=== PATIENT | male | born 1945 | race Caucasian/White ===

== ENCOUNTER 2017-02-05 11:08 | Emergency (ER) | payer MEDICARE, BC ==
[2017-02-05 11:30] VITALS: BP 153/65
--- NOTE | 2017-02-05 11:35 | EDM.PDOC ---
ED HPI Trauma - General Chief Complaint: Lower Extremity Injury/Pain Stated Complaint: RT FOOT Time Seen by Provider: 02/05/17 11:15 Source: Reports: Patient History Limitations: Reports: No limitations - History of Present Illness INITIAL COMMENTS - FREE TEXT/NARRATIVE: c/o R great toe pain wearing a work shoe without a metal toe 1d ago, dropped 50 lb metal on it, nail on R great toe began to bleed from the base this AM relieving the pain, not taking pain meds last TD 1y ago with finger lac has DM, has maintained feeling in toes, 2nd toe now feels numb rivera Allergies/ADRs: Allergies No Known Allergies Allergy (Verified 05/06/15 17:52) Home Medications: Ambulatory Orders Aspirin [Ecotrin] 325 mg PO DAILY 10/07/13 [Confirmed 08/24/16] Ezetimibe/Simvastatin [Vytorin 10-20 MG] 1 tab PO DAILY 10/07/13 [Confirmed 02/03] Ibuprofen [Advil] 600 mg PO TID PRN 10/07/13 [Confirmed 08/24/16] Lisinopril/Hydrochlorothiazide [Zestoretic 20-25 MG] 1 tab PO DAILY 10/07/13 [ Confirmed 08/24/16] amLODIPine [Norvasc] 5 mg PO DAILY 10/07/13 [Confirmed 08/24/16] Metoprolol Tartrate 50 mg PO BID 08/24/16 [Confirmed 08/24/16] sitaGLIPtin Phos/Metformin HCl [Janumet 50-1,000 MG] 1 each PO BID 08/24/16 [ Confirmed 08/24/16] Social & Family History - Tobacco Use Smoking Status *Q: Former Smoker Used Tobacco, but Quit: Yes Month Tobacco Last Used: august Second Hand Smoke Exposure: No - Caffeine Use Caffeine Use: Reports: Coffee - Alcohol Use Days Per Week of Alcohol Use: 7 Number of Drinks Per Day: 2 Total Drinks Per Week: 14 - Recreational Drug Use Recreational Drug Use: No Review of Systems - Review of Systems Review Of Systems: See Below Constitutional: Reports: no symptoms Eyes: Reports: no symptoms Ears: Reports: no symptoms Nose: Reports: no symptoms Mouth/Throat: Reports: no symptoms Respiratory: Reports: No Symptoms Cardiovascular: Reports: no symptoms GI/Abdominal: Reports: No symptoms Genitourinary: Reports: no symptoms Musculoskeletal: Reports: foot pain Skin: Reports: no symptoms Neurological: Reports: No Symptoms Psychiatric: Reports: no symptoms Trauma Exam - Physical Exam Exam: See Below Exam Limited By: No limitations General Appearance: Reports: alert, WD/WN, no apparent distress Head: Reports: atraumatic, normocephalic Extremities: Reports: other (R great toe with ecchymosis under lower 60%, nail intact, some separation at the base of the nail, some ecchymosis of adjacent skin over distal phalange, good ROM IP, on 2nd digit there is moderate ecchymosis of distal 1/2 with slight swell, no ecchymosis under nail, good ROM joints, minimal sensation to the skin in the distal 1/2 (likely with a component of diabetic neuropathy)) Course - Vital Signs Last Recorded V/S: Last Vital Signs Temp Pulse 59 L 02/05/17 11:13 Resp 15 02/05/17 11:13 BP 153/65 H 02/05/17 11:13 Pulse Ox 97 02/05/17 11:13 - Orders/Labs/Meds Orders: Active Orders 24 hr Category Date Time Status Toes Great Toe Rt T5 [CR] Stat Exams 02/05/17 11:28 Ordered - Re-Assessments/Exams Free Text/Narrative Re-Assessment/Exam: 02/05/17 11:58 XR shows possible slight distal tuft fx at R 2nd digit on 1 of 3 views, however no ecchymosis in same location, no Td here in ED 1 yr ago, RN checking at Dr Tafoya[facility] clinic for last Td, will give if over 10y Departure - Departure Time of Disposition: 12:00 Disposition: Home, Self-Care 01 Condition: good Clinical Impression: Subungual hematoma of great toe of right foot, Contusion, toes Instructions: Subungual Hematoma, Contusion Forms: ED Department Discharge Additional Instructions: Keep toes clean. May soak for 10 minutes in evening if necessary. While infection is unlikely, see your physician the same day for any increase in redness, swelling, pain, drainage, warmth or fever. It is best to keep the old nail attached for at least 3-4 weeks, if not longer. When the edges begin to separate, use 2 bandaids to hold it in position and to protect it. May use ibuprofen 200 mg 2 tabs and acetaminophen 325 mg 2 tabs 4 times a day as needed for pain. See your doctor if you have more symptoms or additional concerns. Call your Physician or Return to Emergency Department if: * Your condition worsens in any way. * You develop fever greater than 100.4. * You have vomiting that does not stop with medications. * You have pain that is not controlled with medications. - My Orders Last 24 Hours: My Active Orders 02/05/17 11:28 Toes Great Toe Rt T5 [CR] Stat - Assessment/Plan Last 24 Hours: My Active Orders 02/05/17 11:28 Toes Great Toe Rt T5 [CR] Stat
[2017-02-05] MEDS ORDERED: Diphtheria,Pertussis(Acell),Tetanus Vaccine 0.5 ML SDV IM ONE (12:03)
--- NOTE | 2017-02-05 14:24 | CR ---
INDICATION: Dropped 50-pound metal on first and second toes right foot. RIGHT GREAT TOE: Three views of the right toes revealed moderate hypertrophic degenerative changes at the first metatarsophalangeal joint and the interphalangeal joint of the great toe. Mild degenerative changes are noted at the DIP joint of the 3rd toe. A definite displaced fracture site or dislocation was not identified. IMPRESSION: No acute fracture or dislocation. Ungual leodan of the toes have a somewhat irregular appearance, felt to be developmental. MTDD
== END 2017-02-05 12:25 | disposition home or self-care (01) ==
LOC: FB.ED 11:08
DX: S90.211A Contusion of right great toe with damage to nail, initial encounter (principal); Z87.891 Personal history of nicotine dependence; Z23 Encounter for immunization; W20.8XXA Other cause of strike by thrown, projected or falling object, initial encounter; Y92.69 Other specified industrial and construction area as the place of occurrence of the external cause
CPT/HCPCS: 73660; 90471; 90715; 99282; 99283; A4217